=== PATIENT | female | born 1935 | race Caucasian/White ===

== ENCOUNTER 2023-06-28 04:58 | Inpatient (IN) ==
[2023-06-28 05:53] LABS: Basophils # (Auto) 0.06 K/mcL (0.00-0.30); Basophils % (Auto) 0.5 % (0.0-2.0); Eosinophils # (Auto) 0.15 K/mcL (0.00-0.70); Eosinophils % (Auto) 1.2 % (0.0-7.0); Hematocrit 36.9 % (34.1-44.9); Hemoglobin 12.2 g/dL (11.2-15.7); Lymphocytes # (Auto) 0.96 K/mcL (1.50-4.80); Lymphocytes % (Auto) 7.4 % (15.5-49.0); Mean Corpuscular HGB Conc 33.1 g/dL (31.0-36.0); Mean Platelet Volume 10.1 fL (8.8-12.5); Monocytes # (Auto) 0.62 K/mcL (0.10-0.90); Monocytes % (Auto) 4.8 % (1.0-12.0); Neutrophils % (Auto) 84.9 % (38.0-78.0); Platelet Count 192 K/mcL (140-440); RBC 4.01 M/mcL (3.59-5.38); Red Cell Distribution Width 13.8 % (11.5-14.5); WBC 12.9 K/mcL (4.5-11.0)
[2023-06-28 06:12] LABS: ALT/SGPT 14 U/L (<40); AST/SGOT 17 U/L (<32); Albumin 3.3 gm/dL (3.2-5.2); Albumin/Globulin Ratio 1.2 (1.0-2.3); Alkaline Phosphatase 73 U/L (39-117); Bilirubin,Total 0.4 mg/dL (0.1-1.0); Blood Urea Nitrogen 50 mg/dL (8-23); Carbon Dioxide 17 mmol/L (22-30); Chloride 107 mmol/L (96-108); Globulin 2.8 gm/dL (2.2-3.7); Glomerular Filtration Rate 14; Glucose 267 mg/dL (70-105)
[2023-06-28] MEDS: 0.9 % SODIUM CHLORIDE 1,000 ML IV ONE (06:47)
[2023-06-28 10:19] LABS: Appearance,Urine CLOUDY (Clear); Bacteria,Urine MOD /hpf (0); Bilirubin,Urine Negative (Negative); Color,Urine YELLOW; Culture Indicated,Urine Yes; Glucose,Urine (UA) >=500 mg/dL (Negative); Ketones,Urine Negative (Negative); Leukocyte Esterase,Urine 250 /uL (Negative); Mucus,Urine FEW /hpf; Nitrate,Urine Negative (Negative); Protein,Urine 30 mg/dL (Negative); Specific Gravity,Urine 1.008 (1.000-1.035); Urine Blood Trace-intact ery/mcL (Negative); Urine RBC < 1 /hpf (0-3); Urine Squamous Epithelial Cell 2 /hpf (0-4); Urine WBC 159 /hpf (0-4); Urobilinogen,Urine Negative
[2023-06-28] MEDS: cefTRIAXone 1 GM VIAL IV ONE (10:52)
[2023-06-28] MEDS ORDERED: POTASSIUM CHLORIDE 20 MEQ TABLET PO PRN ×2 (15:20)
[2023-06-28] MEDS ORDERED: IPRATROPIUM/ALBUTEROL 3 ML AMPUL.NEB NEB PRN (15:20)
[2023-06-28] MEDS ORDERED: POLYETHYLENE GLYCOL 3350 17 GM PACKET PO PRN (15:20)
[2023-06-28] MEDS ORDERED: MAGNESIUM SULFATE 2 GM/50 ML BAG IV PRN (15:20)
[2023-06-28] MEDS ORDERED: DEXTROSE 50% 50 ML VIAL IV PRN (15:20)
[2023-06-28] MEDS ORDERED: LABETALOL HCL 20 MG/4 ML VIAL IV PRN (15:20)
[2023-06-28] MEDS ORDERED: DEXTROSE 31 GM ORAL.SUSP PO PRN (15:20)
[2023-06-28] MEDS ORDERED: POTASSIUM CHLORIDE 40 MEQ in DEXTROSE 5% IN WATER 500 ML IV PRN (15:20)
[2023-06-28] MEDS ORDERED: SENNOSIDES 1 TABLET PO PRN (15:20)
[2023-06-28] MEDS: METOPROLOL SUCCINATE 25 MG TAB.XL.24H PO SCH (16:27)
[2023-06-28] MEDS: INSULIN LISPRO 1 UNIT/0.01 ML UNIT SQ SCH (16:39)
[2023-06-28] MEDS: DOCUSATE SODIUM 100 MG CAPSULE PO SCH (21:10)
[2023-06-28] MEDS: 0.9 % SODIUM CHLORIDE 10 ML SYRINGE IV SCH (21:11)
[2023-06-28] MEDS: hydrALAZINE 20 MG/ML VIAL IV PRN (21:11)
[2023-06-28] MEDS: ONDANSETRON 4 MG/2 ML VIAL IV PRN (22:40)
[2023-06-28] MEDS: LORazepam 2 MG/ML VIAL ONE (23:03)
[2023-06-28] MEDS: LORazepam 2 MG/ML VIAL IV PRN (23:05)
[2023-06-28] MEDS: OLANZapine 2.5 MG TABLET PO ONE (23:12)
[2023-06-28] MEDS: MELATONIN 3 MG TABLET PO ONE (23:12)
[2023-06-28] MEDS: MELATONIN 3 MG TABLET PO SCH (23:14)
[2023-06-28] MEDS: OLANZapine 5 MG TABLET PO SCH (23:14)
[2023-06-29] MEDS: ACETAMINOPHEN 325 MG TABLET PO PRN (04:00)
[2023-06-29] MEDS: LORazepam 2 MG/ML VIAL ONE (04:08)
[2023-06-29 06:17] LABS: Basophils # (Auto) 0.03 K/mcL (0.00-0.30); Basophils % (Auto) 0.2 % (0.0-2.0); Eosinophils # (Auto) 0.03 K/mcL (0.00-0.70); Eosinophils % (Auto) 0.2 % (0.0-7.0); Hemoglobin 12.6 g/dL (11.2-15.7); Lymphocytes # (Auto) 0.61 K/mcL (1.50-4.80); Lymphocytes % (Auto) 4.5 % (15.5-49.0); Mean Cell Volume 92.6 fL (80.0-100.0); Mean Corpuscular HGB Conc 32.3 g/dL (31.0-36.0); Mean Platelet Volume 10.1 fL (8.8-12.5); Monocytes # (Auto) 0.56 K/mcL (0.10-0.90); Monocytes % (Auto) 4.2 % (1.0-12.0); Neutrophils % (Auto) 90.2 % (38.0-78.0); Platelet Count 222 K/mcL (140-440); RBC 4.21 M/mcL (3.59-5.38); Red Cell Distribution Width 14.3 % (11.5-14.5); WBC 13.5 K/mcL (4.5-11.0)
[2023-06-29 06:39] LABS: ALT/SGPT 21 U/L (<40); AST/SGOT 22 U/L (<32); Albumin 3.4 gm/dL (3.2-5.2); Albumin/Globulin Ratio 1.3 (1.0-2.3); Alkaline Phosphatase 86 U/L (39-117); Bilirubin,Direct < 0.2 mg/dL (0-0.3); Bilirubin,Total 0.5 mg/dL (0.1-1.0); Blood Urea Nitrogen 49 mg/dL (8-23); Calcium 8.9 mg/dL (8.6-10.4); Carbon Dioxide 19 mmol/L (22-30); Chloride 107 mmol/L (96-108); Globulin 2.7 gm/dL (2.2-3.7); Glomerular Filtration Rate 16; Glucose 250 mg/dL (70-105); Lactate Dehydrogenase 225 U/L (135-225); Phosphorous 3.7 mg/dL (2.5-4.5); Triglycerides 194 mg/dL (<150); Uric Acid 6.2 mg/dL (2.5-8.0)
[2023-06-29 09:58] LABS: Lymphocytes % 7 % (15-49); Monocytes % (Manual) 5 % (1-12); Platelet Estimate NORMAL (Normal); RBC Morphology NORMAL (Normal); Reactive Lymphocytes 2 % (0-2); Segmented Neutrophils % 86 % (38-78)
[2023-06-29] MEDS: APIXABAN 2.5 MG TABLET PO SCH (10:01)
[2023-06-29] MEDS: SODIUM BICARBONATE 650 MG TABLET PO SCH (10:01)
[2023-06-29] MEDS: ASPIRIN 81 MG TAB.CHEW PO SCH (10:02)
[2023-06-29] MEDS: cefTRIAXone 1 GM VIAL IV SCH (10:07)
[2023-06-29] MEDS: OLANZapine 5 MG TABLET PO PRN (20:07)
[2023-06-29] MEDS ORDERED: OLANZapine 5 MG TABLET PO SCH (21:00)
[2023-06-30 09:47] LABS: Basophils # (Auto) 0.03 K/mcL (0.00-0.30); Basophils % (Auto) 0.2 % (0.0-2.0); Eosinophils # (Auto) 0.12 K/mcL (0.00-0.70); Hemoglobin 11.6 g/dL (11.2-15.7); Lymphocytes # (Auto) 0.92 K/mcL (1.50-4.80); Lymphocytes % (Auto) 7.4 % (15.5-49.0); Mean Cell Volume 96.1 fL (80.0-100.0); Mean Corpuscular HGB Conc 31.4 g/dL (31.0-36.0); Mean Platelet Volume 10.6 fL (8.8-12.5); Monocytes # (Auto) 0.75 K/mcL (0.10-0.90); Monocytes % (Auto) 6.1 % (1.0-12.0); Neutrophils % (Auto) 84.8 % (38.0-78.0); Platelet Count 184 K/mcL (140-440); RBC 3.85 M/mcL (3.59-5.38); Red Cell Distribution Width 14.4 % (11.5-14.5); WBC 12.4 K/mcL (4.5-11.0)
[2023-06-30 11:08] LABS: ALT/SGPT 12 U/L (<40); AST/SGOT 26 U/L (<32); Albumin/Globulin Ratio 1.3 (1.0-2.3); Alkaline Phosphatase 75 U/L (39-117); Anion Gap 9.6 (8.0-16.0); Bilirubin,Direct < 0.2 mg/dL (0-0.3); Bilirubin,Total 0.3 mg/dL (0.1-1.0); Blood Urea Nitrogen 58 mg/dL (8-23); Calcium 8.7 mg/dL (8.6-10.4); Carbon Dioxide 19 mmol/L (22-30); Chloride 109 mmol/L (96-108); Globulin 2.4 gm/dL (2.2-3.7); Glomerular Filtration Rate 15; Glucose 183 mg/dL (70-105); Lactate Dehydrogenase 218 U/L (135-225); Phosphorous 4.2 mg/dL (2.5-4.5); Triglycerides 105 mg/dL (<150); Uric Acid 7.2 mg/dL (2.5-8.0)
[2023-06-30] MEDS: HYDROCORTISONE ACETATE 25 MG SUPP.RECT PR SCH (12:36)
[2023-07-01 06:22] LABS: Basophils # (Auto) 0.03 K/mcL (0.00-0.30); Basophils % (Auto) 0.3 % (0.0-2.0); Eosinophils % (Auto) 3.3 % (0.0-7.0); Hemoglobin 11.4 g/dL (11.2-15.7); Lymphocytes # (Auto) 0.83 K/mcL (1.50-4.80); Lymphocytes % (Auto) 9.1 % (15.5-49.0); Mean Corpuscular HGB Conc 31.7 g/dL (31.0-36.0); Mean Platelet Volume 10.9 fL (8.8-12.5); Monocytes # (Auto) 0.67 K/mcL (0.10-0.90); Monocytes % (Auto) 7.4 % (1.0-12.0); Neutrophils % (Auto) 79.1 % (38.0-78.0); Platelet Count 189 K/mcL (140-440); RBC 3.79 M/mcL (3.59-5.38); Red Cell Distribution Width 14.4 % (11.5-14.5); WBC 9.1 K/mcL (4.5-11.0)
[2023-07-01 06:55] LABS: ALT/SGPT 17 U/L (<40); AST/SGOT 23 U/L (<32); Albumin/Globulin Ratio 1.3 (1.0-2.3); Alkaline Phosphatase 71 U/L (39-117); Bilirubin,Direct < 0.2 mg/dL (0-0.3); Bilirubin,Total 0.3 mg/dL (0.1-1.0); Blood Urea Nitrogen 53 mg/dL (8-23); Calcium 8.7 mg/dL (8.6-10.4); Carbon Dioxide 21 mmol/L (22-30); Chloride 111 mmol/L (96-108); Globulin 2.3 gm/dL (2.2-3.7); Glomerular Filtration Rate 15; Glucose 136 mg/dL (70-105); Lactate Dehydrogenase 220 U/L (135-225); Phosphorous 4.2 mg/dL (2.5-4.5); Triglycerides 132 mg/dL (<150); Uric Acid 7.7 mg/dL (2.5-8.0)
== END 2023-07-01 11:10 | DRG 689 ==
LOC: ED 04:58 → MEDSUR 15:05
PROVIDERS: ADMIT Internal Medicine; ATTEND Internal Medicine